=== PATIENT | female | born 1935 | race Caucasian/White ===

== ENCOUNTER → 2017-05-18 | Outpatient (CLI) | payer MEDICARE, OTHER ==
[~2017-05-18] MED LIST: ACEBUTCAFT; ASPI325 PO; BENAML10/5; BETA.25.45; BETA.25.45 OD; CHOL10002; CLOP75 PO; CONEST.9; DABI150C PO; DIGO.25; DULO60; DULO60 PO; ERGO400 PO; EVAMIST; FIBER CAPSULES PO; Flomax0.4 MG PO; GLUCHON; HYDACE10B PO; HYDR1TAB94 PO; Hair, Skin & N1 EACH PO; IPRA.06NI; MELO7.5; MELO7.5 PO; METANX; METANX CAPSULE1 EACH; METANX CAPSULE1 EACH PO; METF500 PO; METO25; METO25 PO; METO25ER; METO25ER PO; MULTAQ; MULVITA; Miralax17 GM PO; Multiple Vitam1 EAC1 PO; NEBI5 PO; Norco 10-325 T1 EACH PO; ONDA4ODT MM; OXYC10ER PO; OXYC5; PARO30; PARO30 PO; PREG150 PO; PREG75 PO; Percocet 5-3251 EACH PO; ROSU10TA PO; RXHYD5325 PO; TRAV.004OP BOTHEYES; TRAV.004OP OD; TRAZ50 PO; TRIHYD253A; TRIHYD253A PO; Voltaren100 GM; Voltaren100 GM TOP; WARF3 PO; WARF5 PO; WARF7.5 PO; Zofran4 MG PO; [UNRECOGNIZED DRUG - OTHER]
[2017-05-20 11:44] LABS: HPV Genotype 16 Not Detected (NOTDET); HPV Genotype 18 Not Detected (NOTDET)
[2017-05-27 09:31] LABS: HPV High Risk Other Not Detected (NOTDET)
== END | disposition home or self-care (01) ==
LOC: OLS 16:52
PROVIDERS: Nurse Practitioner Women's Health
DX: Z12.72 Encounter for screening for malignant neoplasm of vagina (principal); Z91.89 Other specified personal risk factors, not elsewhere classified
CPT/HCPCS: 87624; G0123

== ENCOUNTER 2017-06-23 07:21 | Day surgery (SDC) | payer MEDICARE, OTHER ==
[~2017-06-23 07:21] MED LIST changes: -Flomax0.4 MG PO; -METANX CAPSULE1 EACH; -Miralax17 GM PO; -Voltaren100 GM
[2018-03-28] MEDS ORDERED: ASPI325 PO (12:40)
[2018-03-28] MEDS ORDERED: Voltaren100 GM (12:41)
[2018-03-28] MEDS ORDERED: METANX CAPSULE1 EACH (12:41)
[2018-03-28] MEDS ORDERED: HYDR1TAB94 PO (12:41)
== END 2017-06-23 22:58 | disposition home or self-care (01) ==
LOC: MHTC 07:21
PROC: 0JH602Z Insertion of Monitoring Device into Chest Subcutaneous Tissue and Fascia, Open Approach (ICD-10-PCS; principal; 2017-06-23)
DX: I48.0 Paroxysmal atrial fibrillation (principal); I10 Essential (primary) hypertension; E11.9 Type 2 diabetes mellitus without complications; E78.5 Hyperlipidemia, unspecified
CPT/HCPCS: 33282; C1764

== ENCOUNTER 2017-08-13 13:44 | Day surgery (SDC) | payer MEDICARE, OTHER | END 2017-08-13 22:51 | disposition home or self-care (01) | LOC: RAD 13:44 | PROC: BP28YZZ Computerized Tomography (CT Scan) of Right Shoulder using Other Contrast (ICD-10-PCS; principal; 2017-08-13) | DX: M25.511 Pain in right shoulder (principal); M19.011 Primary osteoarthritis, right shoulder; Z96.611 Presence of right artificial shoulder joint | CPT/HCPCS: 23350; 73201; 77002; Q9967 ==

== ENCOUNTER 2017-10-24 05:14 | Emergency (ER) | payer MEDICARE, OTHER ==
[~2017-10-24] VITALS: Ht 170.2 cm; Wt 83.9 kg
[2017-10-24 05:44] LABS: BASOPHILS ABSOLUTE AUTO 0.03 K/mm3 (0.00-0.23); BASOPHILS PERCENT AUTO 0 % (0-2); EOSINOPHILS ABSOLUTE AUTO 0.07 K/mm3 (0.00-0.68); EOSINOPHILS PERCENT AUTO 1 % (0-6); Hematocrit 43.2 % (33.0-51.0); IMMATURE GRAN ABSOLUTE AUTO 0.04 K/mm3 (0.00-0.10); IMMATURE GRAN PERCENT AUTO 0 % (0-1); LYMPHOCYTES ABSOLUTE AUTO 1.71 K/mm3 (0.84-5.20); LYMPHOCYTES PERCENT AUTO 13 % (21-46); MONOCYTES ABSOLUTE AUTO 0.94 K/mm3 (0.16-1.47); MONOCYTES PERCENT AUTO 7 % (4-13); Mean Corpuscular HGB 28.1 pg (26.0-34.0); Mean Corpuscular HGB Conc 32.4 g/dL (31.5-36.5); Mean Corpuscular Volume 87 fL (80-100); Mean Platelet Volume 9.7 fL (9.1-12.4); NEUTROPHILS PERCENT AUTO 78 % (41-73); Platelet Count 256 K/mm3 (150-400); RDW Coefficient Variation 16.9 % (11.7-14.2); RDW Standard Deviation 53.6 fL (35.1-46.3); Red Blood Cell Count 4.98 M/mm3 (3.80-5.20); White Blood Cell Count 12.79 K/mm3 (4.00-11.30)
[2017-10-24 06:04] LABS: Albumin, Blood 3.8 g/dL (3.4-5.0); Bilirubin, Total 0.4 mg/dL (0.1-1.0); Calcium, Blood 8.8 mg/dL (8.5-10.1); Creatinine, Blood 1.09 mg/dL (0.40-1.00); Globulin, Blood 3.8 g/dL (2.2-4.0); Potassium, Blood 4.3 mmol/L (3.5-5.5); Total Protein, Blood 7.6 g/dL (6.4-8.2)
[2017-10-24 07:37] LABS: Source, Urine Clean Catch
[2017-10-24 07:45] LABS: Bilirubin, Urine Neg (Neg); Blood, Urine 1+ (Neg); Glucose Qualitative, Urine Neg (Neg); Ketones, Urine Neg (Neg); Leukocyte Esterase, Urine Neg (Neg); Nitrite, Urine Neg (Neg); Protein, Urine 2+ (Neg); Specific Gravity, Urine 1.015 (1.003-1.022); Urobilinogen, Urine NORM (Normal)
[2017-10-24 08:00] LABS: Appearance, Urine Clear (Clear); Color, Urine Yellow (P-Yellow)
[2017-10-24 08:04] LABS: Bacteria Few /hpf; Red Blood Cells, Urine 0-2 /hpf (0-2); Squamous Epithelial Cells Few /hpf (Few)
[2017-10-24] MEDS ORDERED: Flomax0.4 MG PO (09:04)
[2017-10-24] MEDS ORDERED: Miralax17 GM PO (09:04)
== END 2017-10-24 09:22 | disposition home or self-care (01) ==
LOC: ER 05:14
PROVIDERS: Emergency Medicine
DX: N13.2 Hydronephrosis with renal and ureteral calculous obstruction (principal); K59.00 Constipation, unspecified; I48.91 Unspecified atrial fibrillation; E11.9 Type 2 diabetes mellitus without complications; Z88.1 Allergy status to other antibiotic agents; Z79.899 Other long term (current) drug therapy; Z79.84 Long term (current) use of oral hypoglycemic drugs
CPT/HCPCS: 36415; 74176; 80053; 81001; 83690; 85025; 96361; 96374; 96375; 96376; 99284; J0780; J2405; J3010; J7030

== ENCOUNTER → 2018-11-02 | Outpatient (CLI) | payer MEDICARE, OTHER ==
[~2018-11-02] MED LIST changes: +Flomax0.4 MG PO; +METANX CAPSULE1 EACH; +Miralax17 GM PO; +Voltaren100 GM
[2018-11-04 15:06] LABS: HPV 16 Negative (Negative); HPV 18 Negative (Negative); HPV OTHER HR TYPES Negative (Negative)
== END | disposition home or self-care (01) ==
LOC: LAB SHORT 17:37 → LAB 17:37
PROVIDERS: Nurse Practitioner Women's Health
DX: Z12.72 Encounter for screening for malignant neoplasm of vagina (principal); Z91.89 Other specified personal risk factors, not elsewhere classified
CPT/HCPCS: 87624; G0123

== ENCOUNTER 2019-02-21 11:37 | Emergency (ER) | payer MEDICARE, OTHER ==
[~2019-02-21] VITALS: Ht 170.2 cm; Wt 82.5 kg
== END 2019-02-21 14:31 | disposition home or self-care (01) ==
LOC: ER 11:37
DX: M79.651 Pain in right thigh (principal); R10.9 Unspecified abdominal pain; I48.91 Unspecified atrial fibrillation; E11.9 Type 2 diabetes mellitus without complications; E78.5 Hyperlipidemia, unspecified; Z88.8 Allergy status to other drugs, medicaments and biological substances; Z79.899 Other long term (current) drug therapy; Z79.84 Long term (current) use of oral hypoglycemic drugs; Z79.82 Long term (current) use of aspirin; Z79.891 Long term (current) use of opiate analgesic
CPT/HCPCS: 73552; 96372; 99283-25; J1885

== ENCOUNTER 2020-04-20 09:36 | Emergency (ER) | payer MEDICARE, OTHER ==
[~2020-04-20] VITALS: Ht 170.2 cm; Wt 86.2 kg
[~2020-04-20 09:36] MED LIST changes: -DULO60 PO
[2020-04-20 10:27] LABS: BASOPHILS ABSOLUTE AUTO 0.03 K/mm3 (0.00-0.23); BASOPHILS PERCENT AUTO 0 % (0-2); EOSINOPHILS ABSOLUTE AUTO 0.16 K/mm3 (0.00-0.68); EOSINOPHILS PERCENT AUTO 2 % (0-6); Hematocrit 41.5 % (33.0-51.0); Hemoglobin 13.1 g/dL (11.5-16.0); IMMATURE GRAN ABSOLUTE AUTO 0.03 K/mm3 (0.00-0.10); IMMATURE GRAN PERCENT AUTO 0 % (0-1); LYMPHOCYTES ABSOLUTE AUTO 1.45 K/mm3 (0.84-5.20); LYMPHOCYTES PERCENT AUTO 21 % (21-46); MONOCYTES ABSOLUTE AUTO 0.64 K/mm3 (0.16-1.47); MONOCYTES PERCENT AUTO 9 % (4-13); Mean Corpuscular HGB 30.5 pg (26.0-34.0); Mean Corpuscular HGB Conc 31.6 g/dL (31.5-36.5); Mean Corpuscular Volume 97 fL (80-100); NEUTROPHILS ABSOLUTE AUTO 4.69 K/mm3 (1.96-9.15); NEUTROPHILS PERCENT AUTO 67 % (41-73); Platelet Count 207 K/mm3 (150-400); RDW Coefficient Variation 14.5 % (11.7-14.2); RDW Standard Deviation 51.3 fL (35.1-46.3); Red Blood Cell Count 4.29 M/mm3 (3.80-5.20)
[2020-04-20 10:46] LABS: Alanine Aminotransfer (ALT/SGP 24 U/L (12-78); Albumin, Blood 3.3 g/dL (3.4-5.0); Albumin/Globulin Ratio 1.1 (0.8-1.8); Alk Phos 31 U/L (50-136); Anion Gap 2 mmol/L (6-16); Aspartate Aminotrans (AST/SGOT 21 U/L (12-37); Bilirubin, Total 0.3 mg/dL (0.1-1.0); Blood Urea Nitrogen 17 mg/dL (8-24); CO2, Blood 31 mmol/L (21-32); Calcium, Blood 8.5 mg/dL (8.5-10.1); Chloride, Blood 106 mmol/L (98-108); Creatinine, Blood 0.77 mg/dL (0.40-1.00); Globulin, Blood 3.1 g/dL (2.2-4.0); Glomerular Filtration Rate >60 (60-); Glucose, Blood 108 mg/dL (70-99); Potassium, Blood 4.3 mmol/L (3.5-5.5); Sodium, Blood 139 mmol/L (136-145); Total Protein, Blood 6.4 g/dL (6.4-8.2)
[2020-04-20 12:55] LABS: Source, Urine Clean Catch
[2020-04-20 12:57] LABS: Appearance, Urine Clear (Clear); Bilirubin, Urine Neg (Neg); Blood, Urine Neg (Neg); Color, Urine Yellow (P-Yellow); Glucose Qualitative, Urine Neg (Neg); Ketones, Urine Neg (Neg); Leukocyte Esterase, Urine Neg (Neg); Nitrite, Urine Neg (Neg); Protein, Urine 1+ (Neg); Specific Gravity, Urine 1.025 (1.003-1.022); Urobilinogen, Urine NORM (Normal)
[2020-04-20] MEDS ORDERED: TRAVOPROST2.5 ML BOTHEYES (13:04)
[2020-04-20] MEDS ORDERED: Norco 10-325 T1 EACH PO (13:05)
[2020-04-20] MEDS ORDERED: DULO60 PO (13:07)
[2020-04-20] MEDS ORDERED: OXYCONTIN20 M1 PO (13:08)
[2020-04-20] MEDS ORDERED: METF500 PO (13:08)
[2020-04-20] MEDS ORDERED: PREG150 PO (13:09)
[2020-04-20] MEDS ORDERED: IPRATROPIUM BRO15 ML (13:11)
[2020-04-20] MEDS ORDERED: ROSU10TA PO (13:11)
[2020-04-20] MEDS ORDERED: OMEP20ER PO (13:12)
== END 2020-04-20 14:00 | disposition home or self-care (01) ==
LOC: ER 09:36
PROVIDERS: Emergency Medicine; Physician Assistant
DX: S06.5X9A Traumatic subdural hemorrhage with loss of consciousness of unspecified duration, initial encounter (principal); S06.6X9A Traumatic subarachnoid hemorrhage with loss of consciousness of unspecified duration, initial encounter; I11.9 Hypertensive heart disease without heart failure; I48.91 Unspecified atrial fibrillation; Z88.8 Allergy status to other drugs, medicaments and biological substances; Z79.82 Long term (current) use of aspirin; Z79.84 Long term (current) use of oral hypoglycemic drugs; Z79.899 Other long term (current) drug therapy; W18.30XA Fall on same level, unspecified, initial encounter
CPT/HCPCS: 36415; 70450; 70486; 71045; 72125; 80053; 84484; 85025; 93005; 93010

== ENCOUNTER 2020-05-15 13:25 | Emergency (ER) | payer MEDICARE, OTHER ==
[~2020-05-15] VITALS: Ht 167.6 cm; Wt 81.7 kg
[~2020-05-15 13:25] MED LIST changes: +DULO60 PO; +IPRATROPIUM BRO15 ML; +OMEP20ER PO; +OXYCONTIN20 M1 PO; +TRAVOPROST2.5 ML BOTHEYES
[2020-05-15 14:14] LABS: Source, Urine Clean Catch
[2020-05-15 14:25] LABS: Appearance, Urine Clear (Clear); Bilirubin, Urine Neg (Neg); Blood, Urine Neg (Neg); Color, Urine Yellow (P-Yellow); Glucose Qualitative, Urine Neg (Neg); Ketones, Urine 4+ (Neg); Leukocyte Esterase, Urine Neg (Neg); Nitrite, Urine Neg (Neg); Protein, Urine 1+ (Neg); Urobilinogen, Urine NORM (Normal)
[2020-05-15 14:56] LABS: BASOPHILS ABSOLUTE AUTO 0.04 K/mm3 (0.00-0.23); BASOPHILS PERCENT AUTO 1 % (0-2); EOSINOPHILS ABSOLUTE AUTO 0.01 K/mm3 (0.00-0.68); EOSINOPHILS PERCENT AUTO 0 % (0-6); Hematocrit 47.9 % (33.0-51.0); Hemoglobin 15.1 g/dL (11.5-16.0); IMMATURE GRAN ABSOLUTE AUTO 0.04 K/mm3 (0.00-0.10); IMMATURE GRAN PERCENT AUTO 1 % (0-1); LYMPHOCYTES ABSOLUTE AUTO 0.99 K/mm3 (0.84-5.20); LYMPHOCYTES PERCENT AUTO 15 % (21-46); MONOCYTES ABSOLUTE AUTO 0.48 K/mm3 (0.16-1.47); MONOCYTES PERCENT AUTO 7 % (4-13); Mean Corpuscular HGB 29.6 pg (26.0-34.0); Mean Corpuscular HGB Conc 31.5 g/dL (31.5-36.5); Mean Corpuscular Volume 94 fL (80-100); Mean Platelet Volume 9.5 fL (9.1-12.4); NEUTROPHILS ABSOLUTE AUTO 5.24 K/mm3 (1.96-9.15); NEUTROPHILS PERCENT AUTO 77 % (41-73); Platelet Count 261 K/mm3 (150-400); RDW Coefficient Variation 14.3 % (11.7-14.2); RDW Standard Deviation 49.8 fL (35.1-46.3)
[2020-05-15 14:57] LABS: Alanine Aminotransfer (ALT/SGP 18 U/L (12-78); Albumin, Blood 3.9 g/dL (3.4-5.0); Alk Phos 31 U/L (50-136); Anion Gap 8 mmol/L (6-16); Aspartate Aminotrans (AST/SGOT 18 U/L (12-37); Bilirubin, Total 0.4 mg/dL (0.1-1.0); Blood Urea Nitrogen 9 mg/dL (8-24); Bun/Creatinine Ratio 14.2 (12.0-20.0); CO2, Blood 28 mmol/L (21-32); Calcium, Blood 9.3 mg/dL (8.5-10.1); Chloride, Blood 106 mmol/L (98-108); Creatinine, Blood 0.63 mg/dL (0.40-1.00); Globulin, Blood 3.8 g/dL (2.2-4.0); Glomerular Filtration Rate >60 (60-); Glucose, Blood 116 mg/dL (70-99); Potassium, Blood 3.9 mmol/L (3.5-5.5); Sodium, Blood 142 mmol/L (136-145); Total Protein, Blood 7.7 g/dL (6.4-8.2); Troponin I <0.015 ng/mL (0.000-0.040)
== END 2020-05-15 15:49 | disposition home or self-care (01) ==
LOC: ER 13:25
PROVIDERS: Emergency Medicine
DX: F07.81 Postconcussional syndrome (principal); I48.91 Unspecified atrial fibrillation; E11.9 Type 2 diabetes mellitus without complications; Z79.84 Long term (current) use of oral hypoglycemic drugs; Z79.899 Other long term (current) drug therapy
CPT/HCPCS: 36415; 70450; 71045; 80053; 84484; 85025; 93005; 93010; 99284-25

== ENCOUNTER 2020-07-19 18:47 | Emergency (ER) | payer MEDICARE, OTHER ==
[~2020-07-19] VITALS: Ht 170.2 cm; Wt 77.1 kg
[2020-07-19 19:32] LABS: BASOPHILS ABSOLUTE AUTO 0.04 K/mm3 (0.00-0.23); BASOPHILS PERCENT AUTO 0 % (0-2); EOSINOPHILS ABSOLUTE AUTO 0.12 K/mm3 (0.00-0.68); EOSINOPHILS PERCENT AUTO 1 % (0-6); Hematocrit 47.5 % (33.0-51.0); Hemoglobin 15.2 g/dL (11.5-16.0); IMMATURE GRAN ABSOLUTE AUTO 0.02 K/mm3 (0.00-0.10); IMMATURE GRAN PERCENT AUTO 0 % (0-1); LYMPHOCYTES ABSOLUTE AUTO 1.44 K/mm3 (0.84-5.20); LYMPHOCYTES PERCENT AUTO 16 % (21-46); MONOCYTES ABSOLUTE AUTO 0.75 K/mm3 (0.16-1.47); MONOCYTES PERCENT AUTO 8 % (4-13); Mean Corpuscular HGB 29.6 pg (26.0-34.0); Mean Corpuscular Volume 93 fL (80-100); Mean Platelet Volume 9.7 fL (9.1-12.4); NEUTROPHILS ABSOLUTE AUTO 6.56 K/mm3 (1.96-9.15); NEUTROPHILS PERCENT AUTO 74 % (41-73); NRBC ABSOLUTE 0.02 K/mm3 (0.00-0.02); NRBC Auto 0.2 /100 WBC (0.0-0.2); Platelet Count 264 K/mm3 (150-400); RDW Coefficient Variation 13.7 % (11.7-14.2); RDW Standard Deviation 47.3 fL (35.1-46.3); Red Blood Cell Count 5.13 M/mm3 (3.80-5.20); White Blood Cell Count 8.93 K/mm3 (4.00-11.30)
[2020-07-19 20:01] LABS: Alanine Aminotransfer (ALT/SGP 20 U/L (12-78); Albumin, Blood 3.7 g/dL (3.4-5.0); Alk Phos 35 U/L (50-136); Anion Gap 9 mmol/L (6-16); Aspartate Aminotrans (AST/SGOT 15 U/L (12-37); Bilirubin, Total 0.5 mg/dL (0.1-1.0); Blood Urea Nitrogen 16 mg/dL (8-24); CO2, Blood 26 mmol/L (21-32); Calcium, Blood 8.9 mg/dL (8.5-10.1); Chloride, Blood 103 mmol/L (98-108); Globulin, Blood 3.7 g/dL (2.2-4.0); Glomerular Filtration Rate >60 (60-); Glucose, Blood 110 mg/dL (70-99); Sodium, Blood 138 mmol/L (136-145); Total Protein, Blood 7.4 g/dL (6.4-8.2); Troponin I 0.107 ng/mL (0.000-0.040)
[2020-07-19] MEDS ORDERED: ONDA4ODT SL (22:28)
== END 2020-07-19 22:36 | disposition home or self-care (01) ==
LOC: ER 18:47
PROVIDERS: Physician Assistant
DX: R42 Dizziness and giddiness (principal); R11.0 Nausea; R19.7 Diarrhea, unspecified; I25.10 Atherosclerotic heart disease of native coronary artery without angina pectoris; R79.89 Other specified abnormal findings of blood chemistry; I48.91 Unspecified atrial fibrillation; E11.9 Type 2 diabetes mellitus without complications; Z88.8 Allergy status to other drugs, medicaments and biological substances; Z79.84 Long term (current) use of oral hypoglycemic drugs; Z79.899 Other long term (current) drug therapy
CPT/HCPCS: 36415; 80053; 83690; 84484; 85025; 93005; 93010; 96374; 99284-25; A9270; J2405

== ENCOUNTER → 2021-09-06 | Outpatient (CLI) | payer MEDICARE, OTHER ==
[~2021-09-06] MED LIST changes: +ONDA4ODT SL
[2021-09-06 14:31] LABS: Creatinine, Urine Random 90.9 mg/dL (27.00-270.00); Microalb/Creat Ratio UR, Rand 11.331 mg/g (0.000-30.000); Microalbumin, Random Urine 10.3 mg/L (0.000-20.000)
== END | disposition home or self-care (01) ==
LOC: LAB SHORT 10:35 → LAB 10:35 → LAB FUT 09-06 10:05
PROVIDERS: Internal Medicine
DX: I10 Essential (primary) hypertension (principal); E11.8 Type 2 diabetes mellitus with unspecified complications; E78.5 Hyperlipidemia, unspecified; Z79.899 Other long term (current) drug therapy
CPT/HCPCS: 82043; 82570